=== PATIENT | male | born 1985 | race Caucasian/White ===

== ENCOUNTER 2025-06-02 01:14 | Emergency (ER) | payer OTHER ==
[2025-06-02] MEDS ORDERED: Ketorolac Tromethamine 30 MG (1 mL) VIAL ONE (02:16)
[2025-06-02] MEDS ORDERED: HYDROcodone/Acetaminophen 10/325 mg Tablet ONE (02:17)
[2025-06-02] MEDS ORDERED: Lidocaine Viscous Sol 2% 15 ml UD Cup ONE (02:18)
[2025-06-02] MEDS ORDERED: Amoxicillin/Potassium Clav 875 MG TAB ONE (03:46)
== END 2025-06-02 04:10 | disposition home or self-care (01) ==
LOC: ERS 01:14
DX: K02.9 Dental caries, unspecified (principal); R03.0 Elevated blood-pressure reading, without diagnosis of hypertension
CPT/HCPCS: 96374; J1885